=== PATIENT | male | born 2005 | race Caucasian/White ===

== ENCOUNTER → 2023-12-19 | Outpatient (CLI) | payer SELFPAY | LOC: COL.RAD 09:30 | DX: M48.04 Spinal stenosis, thoracic region (principal) ==

== ENCOUNTER 2024-09-06 19:45 | Emergency (ER) | payer SELFPAY ==
[~2024-09-06] VITALS: Ht 177.8 cm; Wt 63.6 kg
[2024-09-06 20:00] VITALS: TEMP 98.7
[2024-09-06] MEDS ORDERED: CEPHALEXIN500 M1 PO (21:41)
[2024-09-06] MEDS ORDERED: Cephalexin 500 MG CAP PO ONE (21:45)
[2024-09-06 22:10] VITALS: BP 116/73; PULSE 75
== END 2024-09-06 22:11 | disposition home or self-care (01) ==
LOC: COL.ER 19:45
DX: S71.112A Laceration without foreign body, left thigh, initial encounter (principal); S61.012A Laceration without foreign body of left thumb without damage to nail, initial encounter; W26.0XXA Contact with knife, initial encounter

== ENCOUNTER 2024-09-16 14:37 | Emergency (ER) | payer SELFPAY ==
[~2024-09-16] VITALS: Ht 180.3 cm; Wt 59.1 kg
[~2024-09-16 14:37] MED LIST: CEPHALEXIN500 M1 PO
[2024-09-16] MEDS ORDERED: Ketorolac 15 MG/ML VIAL IM ONE (15:15)
[2024-09-16] MEDS ORDERED: DOXYCYCLINE 10100 MG PO (15:45)
[2024-09-16] MEDS ORDERED: Ibuprofen 400 MG TAB PO ONE (16:00)
[2024-09-16 16:12] VITALS: BP 122/79; PULSE 70; TEMP 98.3
== END 2024-09-16 16:12 | disposition home or self-care (01) ==
LOC: COL.ER 14:37
DX: S71.112D Laceration without foreign body, left thigh, subsequent encounter (principal); W26.0XXD Contact with knife, subsequent encounter